=== PATIENT | female | born 1945 | race Caucasian/White ===

== ENCOUNTER 2019-06-28 14:57 | Outpatient (CLI) | payer MEDICARE, SELFPAY ==
--- NOTE | 2019-06-28 15:11 | MM_ITS ---
WS: [id number] BILATERAL SCREENING DIGITAL MAMMOGRAM WITH CAD HISTORY: SCREENING COMPARISON: 06/23/2017, 11/16/2014 Bilateral CC and MLO views submitted. Computer aided detection analyzed. Breast composition: The breasts are heterogeneously dense, which may obscure small masses. No suspici ous masses, microcalcifications or architectural distortion. Asymmetry and increased nodularity in th e anterior RIGHT breast has been stable over multiple prior years. MM/[id number] IMPRESSION: BI-RADS: 2-Benign FOLLOW UP: 1 Year Follow-up
== END 2019-06-28 14:58 | disposition home or self-care (01) ==
LOC: RADSHAW 14:57
PROVIDERS: Family Provider Family Medicine; PCP Family Medicine; Visit Provider Family Medicine
DX: Z12.31 Encounter for screening mammogram for malignant neoplasm of breast (principal)
CPT/HCPCS: 77067

== ENCOUNTER → 2020-06-27 11:29 | Outpatient (BNVA) | payer MEDICARE, SELFPAY | PROVIDERS: Family Provider Family Medicine; PCP Family Medicine; Visit Provider Nurse Practitioner | DX: Z20.828 Contact with and (suspected) exposure to other viral communicable diseases (principal) | CPT/HCPCS: 87635 ==

== ENCOUNTER 2020-10-04 09:40 | Outpatient (CLI) | payer MEDICARE, SELFPAY ==
--- NOTE | 2020-10-04 09:42 | MM_ITS ---
WS: [id number] BILATERAL DIGITAL SCREENING MAMMOGRAPHY WITH CAD CLINICAL INFORMATION: SCREENING HISTORY: Screening mammogram. No current complaints. COMPARISON: June 28, 2025 TECHNIQUE: Bilateral CC and MLO views. FINDINGS: The breasts are composed of heterogeneous fibroglandular density tissue, which can limit the detectio n of small underlying mass lesions. Parenchymal nodularity right breast is unchanged. No suspicious m ass, asymmetry, calcifications, or architectural distortion. No evidence of malignancy. MM/[place] [id number] IMPRESSION: BI-RADS: 2-Benign FOLLOW UP: 1 Year Follow-up Recommend return to annual screening mammography.
== END 2020-10-04 09:41 | disposition home or self-care (01) ==
LOC: RADSHAW 09:42
PROVIDERS: PCP Family Medicine; Visit Provider Family Medicine
DX: Z12.31 Encounter for screening mammogram for malignant neoplasm of breast (principal)
CPT/HCPCS: 77067

== ENCOUNTER → 2021-10-01 14:40 | Outpatient (BNVA) | payer MEDICARE, SELFPAY | PROVIDERS: PCP Family Medicine; Visit Provider Family Medicine | DX: Z00.00 Encounter for general adult medical examination without abnormal findings (principal) | CPT/HCPCS: 80053; 80061; 85025 ==

== ENCOUNTER → 2021-10-04 08:39 | Outpatient (BNVA) | payer MEDICARE, SELFPAY | PROVIDERS: PCP Family Medicine; Visit Provider Family Medicine | DX: Z00.00 Encounter for general adult medical examination without abnormal findings (principal) | CPT/HCPCS: 80053; 80061; 85025 ==

== ENCOUNTER 2021-10-24 10:05 | Outpatient (CLI) | payer MEDICARE, SELFPAY ==
--- NOTE | 2021-10-24 | MM_ITS ---
WS: [id number] BILATERAL SCREENING DIGITAL BREAST TOMOSYNTHESIS MAMMOGRAM WITH CAD HISTORY: Screening. COMPARISON: 10/04/2020, 06/28/2019 Bilateral CC and MLO views with tomosynthesis and synthetic mammography submitted. Computer aided det ection analyzed. Breast composition: The breasts are extremely dense, which lowers the sensitivity of mammography. No suspicious masses, microcalcifications or architectural distortion. MM/[id number] IMPRESSION: BI-RADS: 1-Negative FOLLOW UP: 1 Year Follow-up
== END 2021-10-24 10:06 | disposition home or self-care (01) ==
LOC: RAD 10:08
PROVIDERS: PCP Family Medicine; Visit Provider Family Medicine
DX: Z12.31 Encounter for screening mammogram for malignant neoplasm of breast (principal)
CPT/HCPCS: 77063; 77067

== ENCOUNTER 2021-11-15 23:53 | Emergency (ER) | payer MEDICARE, SELFPAY ==
[2021-11-15 23:54] VITALS: BP 124/67; PULSE 83; RESP 24; TEMP 36.8; O2SAT 100; BMI 20.5
--- NOTE | 2021-11-15 23:57 | CTR_ITS ---
PROCEDURE INFORMATION: Exam: CT Cervical Spine Without Contrast Exam date and time: 11/16/2021 12:51 AM Age: 76 years old Clinical indication: Injury or trauma; Blunt trauma; Patient HX: Syncope with fall at home while in bathroom. Hit back of head with no loc. C/O head pain. TECHNIQUE: Imaging protocol: Computed tomography of the cervical spine without contrast. Radiation optimization: All CT scans at this facility use at least one of these dose optimization techniques: automated exposure control; mA and/or kV adjustment per patient size (includes targeted exams where dose is matched to clinical indication); or iterative reconstruction. COMPARISON: CT head wo con* [id number] 11/16/2021 12:47 AM RADIATION DOSE METRICS: Total DLP (mGy-cm): 319.57 FINDINGS: Bones/joints: No acute fracture. Normal alignment. Discs/Spinal canal/Neural foramina: Sclerosis, joint space narrowing and bone spurring is seen within the facets of the cervical spine compatible diffuse osteoarthritic changes. New diffuse loss of disc height seen within the the cervical spine most prominently C5-C7 compatible degenerative disc disease. Lungs: Lung apices are normal. Soft tissues: Unremarkable. CT/CT cervical spin wo con* [id number] IMPRESSION: There are no acute osseous findings.
--- NOTE | 2021-11-15 23:57 | CTR_ITS ---
PROCEDURE INFORMATION: Exam: CT Head Without Contrast Exam date and time: 11/16/2021 12:47 AM Age: 76 years old Clinical indication: Injury or trauma; Blunt trauma (contusions or hematomas); Patient HX: Syncope with fall at home while in bathroom. Hit back of head with no loc. C/O head pain. TECHNIQUE: Imaging protocol: Computed tomography of the head without contrast. Radiation optimization: All CT scans at this facility use at least one of these dose optimization techniques: automated exposure control; mA and/or kV adjustment per patient size (includes targeted exams where dose is matched to clinical indication); or iterative reconstruction. COMPARISON: No relevant prior studies available. RADIATION DOSE METRICS: Total DLP (mGy-cm): 1078.78 FINDINGS: Brain: There is mild diffuse cerebral atrophy. Patchy areas of hypoattenuation are seen in the deep white matter of the cerebral hemispheres bilaterally compatible with deep white microvascular disease. Cerebral ventricles: No ventriculomegaly. Paranasal sinuses: Visualized sinuses are unremarkable. No fluid levels. Mastoid air cells: Visualized mastoid air cells are well aerated. Bones/joints: Unremarkable. No acute fracture. Soft tissues: Unremarkable. CT/CT head wo con* [id number] IMPRESSION: There are no acute intracranial findings.
--- NOTE | 2021-11-15 23:58 | ECG_ITS ---
[facility] Test Date: 2021-11-16 Pat Name: Allegra Miranda Department: Room: Gender: Female Irrigation Technician: : 1945 Requested By: Benjamín Mack Order Number: [id number] Chris MD: Gilles Arana M.D. Measurements Intervals [place] Rate: 79 P: 70 WA: 192 QRS: -74 QRSD: 88 T: 66 QT: 386 QTc: 444 Interpretive Statements SINUS RHYTHM LOW QRS VOLTAGE IN PRECORDIAL LEADS [QRS DEFLECTION < 1.0 mV IN CHEST LEADS] LEFT ANTERIOR FASCICULAR BLOCK [QRS AXIS <= -45, QR IN I, RS IN II] POSSIBLE ANTERIOR MYOCARDIAL INFARCTION , PROBABLY OLD [30 ms Q WAVE IN V3/V4, OR R < 0.2 mV IN V4] No previous ECG available for comparison Electronically Signed On 11-16-2021 18:17:30 CDT by Gilles Arana M.D. [email or web address]
[2021-11-16 00:13] LABS: Basophils % 0.2 %; Eosinophils % 0.2 %; Hematocrit 47.7 % (37.0-47.0); Hemoglobin 15.8 g/dL (11.5-15.3); Lymphocytes % 6.8 %; Mean Corpuscular HGB Conc 33.1 g/dL (30.0-36.0); Mean Corpuscular Hemoglobin 30.9 pg (28.0-34.0); Mean Corpuscular Volume 93.2 fl (81-99); Mean Platelet Volume 9.9 fL (7.4-10.4); Monocytes # 0.5 10^3/uL (0.2-0.9); Monocytes % 3.7 %; Neutrophils # 12.57 10^3/uL (1.8-7.7); Neutrophils % 88.7 %; Nucleated Red Blood Cells % 0 %; Platelet Count 284 10^3/cmm (130-400); Red Blood Count 5.12 10^6/uL (4.1-5.3); Red Cell Distribution Width 12.7 % (12.1-15.1); White Blood Count 14.2 10^3/uL (4.0-10.0)
[2021-11-16] MEDS: sodium chloride 0.9% 1,000 ML 999 ML IV (00:27)
[2021-11-16 00:29] LABS: Alanine Aminotransferase 18 U/L (0-33); Albumin Level 5.2 g/dL (3.5-5.2); Alkaline Phosphatase 102 IU/L (35-105); Aspartate Amino Transferase 24 U/L (0-32); Blood Urea Nitrogen 17 mg/dL (8-23); Calcium 10.3 mg/dL (8.5-10.5); Carbon Dioxide 25 mmol/L (22-29); Chloride 95 mmol/L (98-107); Globulin 2.9 g/dL (1.3-4.6); Glucose 113 mg/dL (65-115); Osmolality Calculated 284 mOsm/kg (285-295); Sodium 136 mmol/L (136-145); Total Bilirubin 0.6 mg/dL (0.15-1.2); Total Protein 8.1 g/dL (6.6-8.7)
[2021-11-16 00:37] VITALS: RESP 16
[2021-11-16] MEDS: morphine 4 mg/mL SDV 1 mL IVP (00:37)
[2021-11-16] MEDS: ondansetron 2 mg/ML SDV 2 mL 4 MG IVP ×2 (00:37→01:33)
--- NOTE | 2021-11-16 00:44 | W.ED.FALL ---
HPI - Fall General: Chief Complaint: Fall Stated Complaint: FALL Time Seen by Provider: 11/15/21 23:54 Source: patient and EMS Mode of arrival: EMS Limitations: no limitations History of Present Illness: 76-year-old female states that tonight she got up and had run and use a bath and had an episode of diarrhea. States that during her diarrhea she had a syncopal event. She states she fell and did hit her head. She states that she has had some weakness she is having a headache and neck pain. She states that her diarrhea is just loose stool denies any blood in her stool she denies any fever denies any abdominal pain denies any vomiting. Associated symptoms-after fall: Reports headache(s); Denies abdominal pain or neck pain Review of Systems Const: Denies: fever(s), chills, body aches or change in appetite Eyes: Denies: blurry vision or eye discomfort ENMT: Denies: throat pain or dental pain Card: Reports: syncope Resp: Denies: dyspnea GI: Denies: abdominal pain, nausea, vomiting or diarrhea : Denies: dysuria Musc: Denies: neck pain or back pain Skin/Breast: Denies: rash Neuro: Reports: headache(s) Psych: Denies: depression Vishnu/Lymph: Denies: easy bruising All/Imm: Denies: urticaria PFSH ED PFSH: Medical History No pertinent past medical history Social History (Updated 11/16/21 @ 00:45 by Benjamín Mack MD) Alcohol intake: never Physical Exam Const: COMMON NORMALS: no acute distress, patient oriented x3 and healthy appearing HENMT: COMMON NORMALS: normocephalic; head/scalp not atraumatic (2 cm laceration to posterior scalp) HEAD & SCALP: normocephalic; not atraumatic (2 cm laceration to posterior scalp) Eye: COMMON NORMALS: Equal, round and reactive pupils present and EOMs intact bilaterally PUPIL: Yes Equal, round and reactive pupils present Neck/C-Spine: COMMON NORMALS: full ROM and supple Chest: COMMONS NORMALS: normal inspection of the chest and normal palpation of entire chest wall Resp: COMMON NORMALS: normal respiratory effort, No retractions, No use of accessory muscles and clear to auscultation bilaterally AUSCULTATION: clear to auscultation bilaterally Cardio: COMMON NORMALS: regular rate, regular rhythm and No murmurs present (Cardio) RATE: regular rate RHYTHM: regular rhythm GI: COMMON NORMALS: Normal to inspection, nondistended, normoactive bowel sounds present, Soft to palpation, non-tender and no masses PALPATION: Yes Soft to palpation Extremity: COMMON NORMALS: normal to inspection and full ROM Neuro: COMMON NORMALS: patient oriented x3, moves all extremities and no focal motor deficits Psych: COMMON NORMALS: mental status grossly normal, Normal thought process present and cooperative THOUGHT PROCESS: Normal thought process present Skin: COMMON NORMALS: no rashes or lesions noted and no wounds GENERAL SKIN EXAM: no rashes or lesions noted Procedures Laceration Laceration 1: Site: scalp Size (cm): 2 Description: linear Depth: simple, single layer Local Anesthetic: lidocaine 1% Amount of anesthesia used (mL): 6 Skin layer closed with: other (sonam) Number of sutures: 4 Course Vital Signs: Vital signs: Vital Signs Temperature 98.3 F 11/15/21 23:54 Pulse Rate 91 11/16/21 01:33 Respiratory Rate 24 H 11/16/21 01:33 Blood Pressure 130/69 11/16/21 01:33 Pulse Oximetry 97 11/16/21 01:33 MDM - Fall Medical Decision Making Patient presents here after syncopal event is likely a vagal reaction along with may be some dehydration from diarrhea. She does have a head laceration was repaired her head CT here is normal patient blood work here is normal as well she feels improved after IV fluids she is stable for discharge is to follow-up PCP and return if worsening she understands agrees to plan. Lab Data : 11/16/21 00:00 11/16/21 00:00 Radiology Impressions Cervical Spine CT 11/15/21 23:57 IMPRESSION: There are no acute osseous findings. Head CT 11/15/21 23:57 IMPRESSION: There are no acute intracranial findings. Laboratory Results WBC 14.2 10^3/uL (4.0-10.0) H 11/16/21 00:00 RBC 5.12 10^6/uL (4.1-5.3) 11/16/21 00:00 Hgb 15.8 g/dL (11.5-15.3) H 11/16/21 00:00 Hct 47.7 % (37.0-47.0) H 11/16/21 00:00 MCV 93.2 fl (81-99) 11/16/21 00:00 MCH 30.9 pg (28.0-34.0) 11/16/21 00:00 MCHC 33.1 g/dL (30.0-36.0) 11/16/21 00:00 RDW 12.7 % (12.1-15.1) 11/16/21 00:00 Plt Count 284 10^3/cmm (130-400) 11/16/21 00:00 MPV 9.9 fL (7.4-10.4) 11/16/21 00:00 Neut % (Auto) 88.7 % 11/16/21 00:00 Lymph % (Auto) 6.8 % 11/16/21 00:00 [place] % (Auto) 3.7 % 11/16/21 00:00 Eos % (Auto) 0.2 % 11/16/21 00:00 Baso % (Auto) 0.2 % 11/16/21 00:00 Neut # (Auto) 12.57 10^3/uL (1.8-7.7) H 11/16/21 00:00 Lymph # (Auto) 1.0 10^3/uL (0.8-4.8) 11/16/21 00:00 [place] # (Auto) 0.5 10^3/uL (0.2-0.9) 11/16/21 00:00 Eos # (Auto) 0.0 10^3/uL (0.0-0.8) 11/16/21 00:00 Baso # (Auto) 0.0 10^3/uL (0.0-0.1) 11/16/21 00:00 Nucleated RBC % (auto) 0 % 11/16/21 00:00 Nucleated RBCs # 0.0 /100WBC 11/16/21 00:00 Sodium 136 mmol/L (136-145) 11/16/21 00:00 Potassium 4.0 mmol/L (3.5-5.1) 11/16/21 00:00 Chloride 95 mmol/L (98-107) L 11/16/21 00:00 Carbon Dioxide 25 mmol/L (22-29) 11/16/21 00:00 Anion Gap 20.0 (5-19) H 11/16/21 00:00 BUN 17 mg/dL (8-23) 11/16/21 00:00 Creatinine 0.9 mg/dL (0.5-0.9) 11/16/21 00:00 GFR Calculation Not Reportable 11/16/21 00:00 Glucose 113 mg/dL (65-115) 11/16/21 00:00 Calculated Osmolality 284 mOsm/kg (285-295) L 11/16/21 00:00 Calcium 10.3 mg/dL (8.5-10.5) 11/16/21 00:00 Total Bilirubin 0.6 mg/dL (0.15-1.2) 11/16/21 00:00 AST 24 U/L (0-32) 11/16/21 00:00 ALT 18 U/L (0-33) 11/16/21 00:00 Alkaline Phosphatase 102 IU/L (35-105) 11/16/21 00:00 Total Protein 8.1 g/dL (6.6-8.7) 11/16/21 00:00 Albumin 5.2 g/dL (3.5-5.2) 11/16/21 00:00 Globulin 2.9 g/dL (1.3-4.6) 11/16/21 00:00 EKG Data EKG 1: I personally reviewed and interpreted this EKG as follows: EKG interpretation date: 11/16/21 EKG interpretation time: 00:06 Interpretation: nsr hr [address] or t wave abnormalities qrs 88 qtc 421 Discharge Plan Discharge Patient Disposition: Home Clinical Impression: Diarrhea Syncope Qualifiers: Syncope type: unspecified Qualified Code(s): R55 - Syncope and collapse Discharge Orders: Discharge ED (Routine); Ordered 11/16/21 Ordered By: Benjamín Mack Referrals: Johnathan Robison MD [Primary Care Provider] - 1-3 days Discharge Diet: Advance as tolerated Discharge Activity: Resume usual activity Patient Instructions: Syncope (ED) Coding Level of Care Code ED Case Resource Manager for Chg Fwd Exam Comprehensive
[2021-11-16 01:33] VITALS: BP 130/69; PULSE 91; RESP 24; O2SAT 97
[2021-11-16 03:25] VITALS: BP 112/58; PULSE 88
[2021-11-16 03:26] VITALS: BP 112/69; PULSE 93
[2021-11-16 03:27] VITALS: BP 129/72; PULSE 103
== END 2021-11-16 03:49 | disposition home or self-care (01) ==
PROVIDERS: Emergency Provider Emergency Medicine; PCP Family Medicine
DX: S01.01XA Laceration without foreign body of scalp, initial encounter (principal); W19.XXXA Unspecified fall, initial encounter; R55 Syncope and collapse; R19.7 Diarrhea, unspecified
CPT/HCPCS: 12001; 70450; 72125; 80053; 85025; 93005; 96361; 96374; 96375; 96376; 99285; J2270; J2405; J7030

== ENCOUNTER → 2021-11-20 11:26 | Outpatient (BNVA) | payer MEDICARE, SELFPAY | PROVIDERS: PCP Family Medicine; Visit Provider Family Medicine | DX: B34.9 Viral infection, unspecified (principal) | CPT/HCPCS: 87635 ==

== ENCOUNTER 2022-10-09 07:21 | Outpatient (CLI) | payer MEDICARE, SELFPAY ==
[2022-10-09 07:48] LABS: Basophils # 0.1 10^3/uL (0.0-0.1); Basophils % 0.9 %; Eosinophils # 0.1 10^3/uL (0.0-0.8); Eosinophils % 1.9 %; Hematocrit 48.1 % (37.0-47.0); Hemoglobin 15.5 g/dL (11.5-15.3); Lymphocytes # 2.2 10^3/uL (0.8-4.8); Lymphocytes % 38.1 %; Mean Corpuscular HGB Conc 32.2 g/dL (30.0-36.0); Mean Corpuscular Hemoglobin 31.1 pg (28.0-34.0); Mean Corpuscular Volume 96.4 fl (81-99); Mean Platelet Volume 8.8 fL (7.4-10.4); Monocytes # 0.5 10^3/uL (0.2-0.9); Monocytes % 7.8 %; Neutrophils # 2.96 10^3/uL (1.8-7.7); Neutrophils % 51.1 %; Nucleated Red Blood Cells % 0 %; Platelet Count 264 10^3/cmm (130-400); Red Blood Count 4.99 10^6/uL (4.1-5.3); Red Cell Distribution Width 12.7 % (12.1-15.1); White Blood Count 5.8 10^3/uL (4.0-10.0)
[2022-10-09 08:22] LABS: Alanine Aminotransferase 19 U/L (0-33); Albumin Level 4.7 g/dL (3.5-5.2); Alkaline Phosphatase 97 U/L (35-105); Anion Gap 11.3 (5-19); Aspartate Amino Transferase 22 U/L (0-32); Blood Urea Nitrogen 14 mg/dL (8-23); Calcium 9.4 mg/dL (8.5-10.5); Carbon Dioxide 29 mmol/L (22-29); Chloride 99 mmol/L (98-107); Chol HDL Ratio 2.04 mg/dL (0.0-4.40); Cholesterol 186 mg/dL (0-200); Globulin 2.7 g/dL (1.3-4.6); Glucose 92 mg/dL (65-115); HDL Cholesterol 91 mg/dL (60-100); LDL Cholesterol Calculated 84 mg/dL (50-129); LDL HDL Ratio 0.92 RATIO (0.00-3.22); Osmolality Calculated 280 mOsm/kg (285-295); Potassium 4.3 mmol/L (3.5-5.1); Sodium 135 mmol/L (136-145); Total Bilirubin 0.5 mg/dL (0.15-1.2); Total Protein 7.4 g/dL (6.6-8.7); Triglycerides 57 mg/dL (0-150)
== END 2022-10-09 07:22 | disposition home or self-care (01) ==
LOC: LAB 07:31
PROVIDERS: PCP Family Medicine; Visit Provider Family Medicine
DX: Z00.00 Encounter for general adult medical examination without abnormal findings (principal)
CPT/HCPCS: 80053; 80061; 85025

== ENCOUNTER 2022-10-29 08:33 | Outpatient (CLI) | payer MEDICARE, SELFPAY ==
--- NOTE | 2022-10-29 08:42 | MM_ITS ---
WS: [id number] BILATERAL 3D TOMOSYNTHESIS DIGITAL SCREENING MAMMOGRAPHY WITH CAD CLINICAL INFORMATION: SCREENING HISTORY: Screening mammogram. No current complaints. COMPARISON: 2021 TECHNIQUE: Bilateral CC and MLO views. FINDINGS: The breasts are composed of heterogeneous fibroglandular density tissue, which can limit the detectio n of small underlying mass lesions. No suspicious mass, asymmetry, calcifications, or architectural d istortion. No evidence of malignancy. Vascular calcification. A few incidental tiny punctate calcific ations. MM/[place] [id number] IMPRESSION: BI-RADS: 2-Benign FOLLOW UP: 1 Year Follow-up Recommend return to annual screening mammography.
== END 2022-10-29 08:34 | disposition home or self-care (01) ==
LOC: RAD 08:37
PROVIDERS: PCP Family Medicine; Visit Provider Family Medicine
DX: Z12.31 Encounter for screening mammogram for malignant neoplasm of breast (principal)
CPT/HCPCS: 77063; 77067; 99024

== ENCOUNTER → 2022-10-30 12:54 | Outpatient (BNVA) | payer MEDICARE, SELFPAY | PROVIDERS: PCP Family Medicine; Visit Provider Dermatology | DX: L71.8 Other rosacea (principal); L57.0 Actinic keratosis | CPT/HCPCS: 17000; 17003; 99213 ==

== ENCOUNTER → 2022-10-31 09:59 | Outpatient (BNVA) | payer MEDICARE, SELFPAY | PROVIDERS: PCP Family Medicine; Referring Provider Family Medicine; Visit Provider Student in an Organized Health Care Education/Training Program | DX: M65.311 Trigger thumb, right thumb (principal); M18.11 Unilateral primary osteoarthritis of first carpometacarpal joint, right hand | CPT/HCPCS: 20550; 73130; 97760; 99203; J3301; J3490; L3924 ==

== ENCOUNTER 2022-10-31 14:42 | Outpatient (CLI) | payer MEDICARE, SELFPAY | END 2022-10-31 14:43 | disposition home or self-care (01) | LOC: SPT 14:43 | PROVIDERS: PCP Family Medicine; Visit Provider Student in an Organized Health Care Education/Training Program | DX: Z46.89 Encounter for fitting and adjustment of other specified devices (principal); M18.11 Unilateral primary osteoarthritis of first carpometacarpal joint, right hand; M65.311 Trigger thumb, right thumb | CPT/HCPCS: 20550; 97760; 99203; L3924 ==

== ENCOUNTER 2022-11-22 06:49 | Day surgery (SDC) | payer MEDICARE, SELFPAY ==
[2022-11-20 14:49] VITALS: BMI 19.8
[2022-11-22 07:16] VITALS: BP 140/85; PULSE 87; RESP 20; TEMP 36.1; O2SAT 98
[2022-11-22] MEDS: sodium chloride 0.9% 1,000 ML 30 ML IV (07:19)
--- NOTE | 2022-11-22 07:26 | ANES.PREANE2 ---
Pre-Anesthetic Assessment Height/Weight: Height 1.68 m Weight 55.792 kg Temp Pulse Resp BP Pulse Ox O2 Del Method 97 F L 87 20 H 140/85 98 Room Air 11/22/22 07:16 11/22/22 07:16 11/22/22 07:16 11/22/22 07:16 11/22/22 07:16 11/22/22 07:16 Operation Date: 11/22/22 08:00 Proposed Procedures p Colonoscopy 11893, Z12.11(Not Applicable) - Fredi Bhakta DO Familial anesthetic complications: None Was Beta Tariq taken within 24 hours: N/A Was Clonidine taken within 24 hours: N/A Last intake: Intake Last Liquid Date 11/21/22 Last Liquid Time 21:00 Last Solid Date 11/20/22 Last Solid Time 17:00 Social No alcohol and No tobacco Exam alert, oriented x 3, clear to auscultation bilaterally and regular rate & rhythm Airway Mallampati: Class I Dentition: full Anesthetic Plan ASA status: 1 Anesthesia: MAC Risk of > 500 ml blood loss (7ml/kg in children): No Medications/Allergies Home Medications Medication Instructions Recorded Confirmed Last Taken Type cmc brace #1 ea 10/31/22 10/31/22 Unknown Rx sumatriptan succinate 100 mg tablet 100 mg PO Q2H PRN Headache 11/20/22 11/20/22 2 Weeks Ago History ~11/06/22 Allergies Allergy/AdvReac Type Severity Reaction Status Date / Time codeine Allergy Intermediate hallucinate Verified 11/20/22 14:59 penicillin V Allergy site Verified 11/20/22 14:59 reaction with injection Current Medications Generic Name Dose Route Start Last Admin Trade Name Freq PRN Reason Stop Dose Admin Sodium Chloride 1,000 mls @ 30 mls/hr 11/22/22 07:00 11/22/22 07:19 Sodium Chloride 0.9% IV 11/23/22 06:59 30 mls/hr .Q24H KJ Administration PFSH Anesthesia Medical History No pertinent past medical history Rosacea Social History Alcohol intake: never Data Anesthesia Cardiac Studies: No Data to Display
--- NOTE | 2022-11-22 08:33 | W.PM.OPSUD ---
Surgery/Procedure H&P Update DATE OF PROCEDURE: November 22, 2022 DATE H&P PERFORMED: 10/29/22 H&P UPDATE INFORMATION: I have reviewed H&P completed within last 30 days, I have examined patient prior to procedure and No changes to prior documentation PLANNED PROCEDURE: Operation Date: 11/22/22 08:00 Proposed Procedures p Colonoscopy 22079, Z12.11(Not Applicable) - Fredi Bhakta, DO
[2022-11-22 09:02] VITALS: BP 110/62; PULSE 77; RESP 12; TEMP 36.1; O2SAT 97
[2022-11-22 09:12] VITALS: BP 114/70; PULSE 76; RESP 16; O2SAT 100
[2022-11-22 09:27] VITALS: BP 113/69; PULSE 62; RESP 16; O2SAT 100
--- NOTE | 2022-11-22 09:30 | ANE.PACU2 ---
Inpatient post-anesthesia follow up: Airway intact: Yes Vital signs: Temperature 97.0 F Pulse Rate 62 Respiratory Rate 16 Blood Pressure 113/69 Pulse Oximetry 100 Oxygen Delivery Me thod Room Air Oxygen Flow Rate Fraction of Inspir ed Oxygen Hydration adequate: Yes Nausea and vomiting: No Pain level: 1 Mental status: Baseline
== END 2022-11-22 09:41 | disposition home or self-care (01) ==
PROVIDERS: PCP Family Medicine; Visit Provider Surgery
PROC: 0DJD8ZZ Inspection of Lower Intestinal Tract, Via Natural or Artificial Opening Endoscopic (ICD-10-PCS; CPT 45378; principal; 2022-11-22 08:00)
DX: Z12.11 Encounter for screening for malignant neoplasm of colon (principal)
CPT/HCPCS: G0121; J2704; J7030

== ENCOUNTER → 2022-12-27 08:52 | Outpatient (BNVA) | payer MEDICARE, SELFPAY | PROVIDERS: PCP Family Medicine; Visit Provider Student in an Organized Health Care Education/Training Program | DX: M18.12 Unilateral primary osteoarthritis of first carpometacarpal joint, left hand | CPT/HCPCS: 20600; 73130; 99213; J3301; J3490 ==

== ENCOUNTER → 2023-10-08 11:06 | Outpatient (BNVA) | payer MEDICARE, SELFPAY | PROVIDERS: PCP Family Medicine; Visit Provider Family Medicine | DX: Z00.00 Encounter for general adult medical examination without abnormal findings (principal); R07.9 Chest pain, unspecified | CPT/HCPCS: 80053; 80061; 85025 ==

== ENCOUNTER → 2023-10-30 09:30 | Outpatient (BNVA) | payer MEDICARE, SELFPAY | PROVIDERS: PCP Family Medicine; Visit Provider Nurse Practitioner Family | DX: L71.8 Other rosacea (principal); L82.1 Other seborrheic keratosis; L82.0 Inflamed seborrheic keratosis; L57.0 Actinic keratosis; L57.8 Other skin changes due to chronic exposure to nonionizing radiation | CPT/HCPCS: 17000; 17110; 99214 ==

== ENCOUNTER 2023-10-31 12:30 | Outpatient (CLI) | payer MEDICARE, SELFPAY ==
--- NOTE | 2023-10-31 | MM_ITS ---
WS: [id number] BILATERAL 3D TOMOSYNTHESIS DIGITAL SCREENING MAMMOGRAPHY WITH CAD CLINICAL INFORMATION: screening HISTORY: Screening mammogram. No current complaints. COMPARISON: 2022 TECHNIQUE: Bilateral CC and MLO views. FINDINGS: The breasts are composed of heterogeneous fibroglandular density tissue, which can limit the detectio n of small underlying mass lesions. No suspicious mass, asymmetry, calcifications, or architectural d istortion. No evidence of malignancy. Vascular calcifications. A few incidental tiny punctate calcifi cations. MM/[place] [id number] IMPRESSION: BI-RADS: 2-Benign FOLLOW UP: 1 Year Follow-up Recommend return to annual screening mammography.
--- NOTE | 2023-10-31 13:00 | XR_ITS ---
WS: [id number] SCREENING DEXA SCAN [employer] CLINICAL INFORMATION: screening COMPARISON: 2018 FINDINGS: The L1-L4 bone mineral density measures 1.134 g/cm2. This corresponds to a T score score of -0.4 and Z score of 1.6. Left femoral neck bone mineral density measures 0.787 g/cm2. This corresponds to a T score of -1.8 an d Z score of 0.3. Right femoral neck bone mineral density measures 0.823 g/cm2. This corresponds to a T score -1.5of an d Z score of 0.6. Mean femoral neck bone mineral density measures 0.805 g/cm2. This corresponds to a T score of -1.6 an d Z score of 0.4. XR/XR DEXA axial skeleton* [id number] IMPRESSION: Normal bone mineralization lumbar spine. Osteopenia femoral necks. Patient's FRAX calculated 10 year probability for major osteoporotic fracture i s 11.1% and osteoporotic hip fracture is 2.5%. Lumbar spine bone mineral density decreased -3.2% Lumbar spine femoral necks decreased -7.4%
--- NOTE | 2023-10-31 13:30 | MM_ITS ---
WS: [id number] BILATERAL 3D TOMOSYNTHESIS DIGITAL SCREENING MAMMOGRAPHY WITH CAD CLINICAL INFORMATION: screening HISTORY: Screening mammogram. No current complaints. COMPARISON: 2022 TECHNIQUE: Bilateral CC and MLO views. FINDINGS: The breasts are composed of heterogeneous fibroglandular density tissue, which can limit the detectio n of small underlying mass lesions. No suspicious mass, asymmetry, calcifications, or architectural d istortion. No evidence of malignancy. Vascular calcifications. A few incidental tiny punctate calcifi cations.
== END 2023-10-31 12:31 | disposition home or self-care (01) ==
PROVIDERS: PCP Family Medicine; Visit Provider Family Medicine
DX: Z12.31 Encounter for screening mammogram for malignant neoplasm of breast (principal); Z13.820 Encounter for screening for osteoporosis; R92.333 Mammographic heterogeneous density, bilateral breasts; R92.1 Mammographic calcification found on diagnostic imaging of breast; M85.80 Other specified disorders of bone density and structure, unspecified site
CPT/HCPCS: 77063; 77067; 77080

== ENCOUNTER 2024-06-03 08:48 | Outpatient (CLI) | payer MEDICARE, SELFPAY ==
--- NOTE | 2024-06-03 08:55 | XR_ITS ---
WS: [id number] Left ankle, AP and lateral views, Clinical Data: r/o fracture Comparison: None. Findings: No fractures or dislocations are seen. The ankle mortise is normal. The talus and calcaneus are unrem arkable. No soft tissue swelling over the medial or lateral malleolus is seen. XR/XR ankle LT 2V [id number] Impression: Negative left ankle.
== END 2024-06-03 08:49 | disposition home or self-care (01) ==
LOC: RAD 08:50
PROVIDERS: PCP Family Medicine; Visit Provider Family Medicine
DX: M25.572 Pain in left ankle and joints of left foot (principal)
CPT/HCPCS: 73600

== ENCOUNTER → 2024-12-29 09:39 | Outpatient (BNVA) | payer MEDICARE, SELFPAY | PROVIDERS: PCP Family Medicine; Visit Provider Family Medicine | DX: Z00.00 Encounter for general adult medical examination without abnormal findings (principal); R07.9 Chest pain, unspecified | CPT/HCPCS: 80053; 80061; 85025 ==

== ENCOUNTER → 2025-02-08 14:59 | Outpatient (BNVA) | payer MEDICARE, SELFPAY | PROVIDERS: PCP Family Medicine; Visit Provider Nurse Practitioner Family | DX: L71.8 Other rosacea (principal); L82.1 Other seborrheic keratosis; D18.01 Hemangioma of skin and subcutaneous tissue; L57.8 Other skin changes due to chronic exposure to nonionizing radiation; D48.5 Neoplasm of uncertain behavior of skin | CPT/HCPCS: 11102; 99214 ==

== ENCOUNTER 2025-03-09 08:43 | Outpatient (CLI) | payer MEDICARE, SELFPAY ==
--- NOTE | 2025-03-09 08:48 | MM_ITS ---
WS: [id number] BILATERAL SCREENING DIGITAL TOMOSYNTHESIS MAMMOGRAM WITH CAD HISTORY: SCREENING COMPARISON: 10/31/2023, 10/24/2021, Bilateral CC and MLO views with tomosynthesis and synthetic mammography submitted. Computer aided detection analyzed. Breast composition: The breasts are heterogeneously dense, which may obscure small masses. No suspicious masses, microcalcifications or architectural distortion. MM/MM scr BI tomosynthesis [id number] IMPRESSION: BI-RADS: 1 - Negative FOLLOW UP: 1 Year Follow-up
== END 2025-03-09 08:44 | disposition home or self-care (01) ==
PROVIDERS: PCP Family Medicine; Visit Provider Family Medicine
DX: Z12.31 Encounter for screening mammogram for malignant neoplasm of breast (principal); R92.333 Mammographic heterogeneous density, bilateral breasts
CPT/HCPCS: 77063; 77067